=== PATIENT | female | born 1995 | race Caucasian/White ===

== ENCOUNTER 2021-06-18 07:27 | Inpatient (IN) | payer OTHER ==
[~2021-06-18] VITALS: Ht 162.6 cm; Wt 80.3 kg
[2021-06-18] MEDS ORDERED: SODIUM CHLORIDE 0.9% 1,000 ML IV ONE ×2 (07:45→10:45)
[2021-06-18] MEDS ORDERED: ACETAMINOPHEN 325MG TABLET PO ONE (08:15)
[2021-06-18 08:21] LABS: CHLORIDE 110 mEq/L (98-107)
[2021-06-18 08:22] LABS: BASOPHILS % 0.2 % (0.0-2.0); EOSINOPHILS % 0.1 % (0.0-5.0); HEMATOCRIT. 27.2 % (36.0-48.0); HEMOGLOBIN. 9.5 g/dL (12.0-16.0); LYMPHOCYTES % 19.3 % (20.0-50.0); MEAN CORPUSCULAR HEMOGLOBIN 29.7 pg (28.0-32.0); MEAN CORPUSCULAR VOLUME 84.9 fL (81.0-99.0); MEAN PLATELET VOLUME 8.3 fl (7.4-10.4); MONOCYTES % 9.1 % (2.0-8.0); NEUTROPHILS % 71.3 % (40.0-76.0); PLATELET 205 x1000/uL (130-400); RED CELL DISTRIBUTION WIDTH 13.2 % (11.6-14.6)
[2021-06-18 08:45] LABS: B-HCG QUANTITATIVE 49147 mIU/mL (<3)
[2021-06-18 09:02] LABS: T4 FREE >8.0 ng/dL ng/dL (0.76-1.46)
[2021-06-18] MEDS ORDERED: PROPRANOLOL HCL 1MG/ML AMPULE IV ONE (09:45)
[2021-06-18 10:01] LABS: CLARITY URINE CLOUDY (CLEAR); COLOR URINE RED (YELLOW); KETONES URINE NEGATIVE (NEGATIVE); LEUKOCYTE ESTERASE URINE 1+ (NEGATIVE); NITRITE URINE POSITIVE (NEGATIVE); OCCULT BLOOD URINE 3+ (NEGATIVE); PH URINE 5.5 (4.5-8.0); PROTEIN URINE 1+ (NEGATIVE); SPECIFIC GRAVITY URINE 1.011 (1.005-1.030)
[2021-06-18] MEDS ORDERED: PROPYLTHIOURACIL 50MG TABLET PO STA (11:52)
[2021-06-18] MEDS ORDERED: CLONIDINE 0.1MG TABLET PO PRN (12:15)
[2021-06-18] MEDS ORDERED: DIPHENHYDRAMINE 50MG/ML VIAL IV PRN (12:15)
[2021-06-18] MEDS ORDERED: ONDANSETRON HCL 4MG/2ML INJ IV PRN (12:15)
[2021-06-18] MEDS: SODIUM CHLORIDE 0.9% 1,000 ML IV SCH (12:15)
[2021-06-18] MEDS ORDERED: IPRATROPIUM/ALBUTEROL 0.5-3(2.5)MG/3ML NEB HHN PRN (12:15)
[2021-06-18] MEDS ORDERED: ACETAMINOPHEN 325MG TABLET PO PRN (12:15)
[2021-06-18] MEDS ORDERED: METOPROLOL TARTRATE 50MG TABLET PO SCH (13:00)
[2021-06-18] MEDS ORDERED: POTASSIUM CHLORIDE 20MEQ TABLET SR PO NR (13:00)
[2021-06-18] MEDS ORDERED: METOPROLOL TARTRATE 5MG/5ML VIAL IV PRN (13:00)
[2021-06-18] MEDS ORDERED: CEFTRIAXONE 1 G PREMIX 50 ML IV SCH (13:00)
[2021-06-18] MEDS: DIGOXIN 500MCG/2ML AMP IV SCH (18:22)
[2021-06-18] MEDS: ACETAMINOPHEN 325MG TABLET PO PRN (20:24)
[2021-06-18] MEDS: POTASSIUM CHLORIDE 20MEQ TABLET SR PO NR (22:00)
[2021-06-18 23:07] LABS: HEMATOCRIT 22.2 % (36.0-48.0); HEMOGLOBIN 7.5 g/dL (12.0-16.0); MEAN CORPUSCULAR HEMOGLOBIN 29.9 pg (28.0-32.0); MEAN CORPUSCULAR VOLUME 88.2 fL (81.0-99.0); PLATELET 202 x1000/uL (130-400); RED BLOOD CELL COUNT 2.52 mill/uL (4.2-5.4); RED CELL DISTRIBUTION WIDTH 13.4 % (11.6-14.6)
[2021-06-19] VITALS (16 sets, daily range): BP systolic 108–137; BP diastolic 42–80
[2021-06-19] MEDS: DIGOXIN 500MCG/2ML AMP IV SCH ×2 (00:39→06:13)
[2021-06-19] MEDS: METOPROLOL TARTRATE 25MG TABLET PO SCH ×3 (00:39→15:00)
[2021-06-19] MEDS: SODIUM CHLORIDE 0.9% 1,000 ML IV SCH (01:53)
[2021-06-19] MEDS: POTASSIUM CHLORIDE 20MEQ TABLET SR PO NR (01:53)
[2021-06-19 03:17] LABS: BASOPHILS % 0.2 % (0.0-2.0); EOSINOPHILS % 0.1 % (0.0-5.0); LYMPHOCYTES % 14.4 % (20.0-50.0); MEAN CORPUSCULAR VOLUME 88.3 fL (81.0-99.0); MEAN PLATELET VOLUME 7.9 fl (7.4-10.4); NEUTROPHILS % 74.3 % (40.0-76.0); PLATELET 248 x1000/uL (130-400); RED BLOOD CELL COUNT 2.27 mill/uL (4.2-5.4); RED CELL DISTRIBUTION WIDTH 13.4 % (11.6-14.6)
[2021-06-19 03:26] LABS: HEMATOCRIT. 20.1 % (36.0-48.0); HEMOGLOBIN. 6.8 g/dL (12.0-16.0)
[2021-06-19 03:41] LABS: CHLORIDE 109 mEq/L (98-107)
[2021-06-19 03:48] LABS: LDL CHOLESTEROL 24 mg/dL (5-100)
[2021-06-19 03:50] LABS: HDL CHOLESTEROL 27 mg/dL (40-59)
[2021-06-19] MEDS ORDERED: DEXT 5%/LR + PITOCIN 20UNITS/L 1,000 ML IV ONE (06:00)
[2021-06-19] MEDS ORDERED: MISOPROSTOL 200MCG TABLET PO NR (06:00)
[2021-06-19] MEDS: ACETAMINOPHEN 325MG TABLET PO PRN ×2 (08:49→18:24)
[2021-06-19] MEDS ORDERED: METHIMAZOLE 5MG TABLET PO SCH (09:00)
[2021-06-19] MEDS ORDERED: CEFTRIAXONE 1,000 MG in DEXTROSE 5% WATER 50 ML IV SCH (09:00)
[2021-06-19] MEDS: MULTIVITAMINS,THER W-MINERALS TABLET PO SCH (09:24)
[2021-06-19] MEDS: METRONIDAZOLE 500MG TABLET PO SCH ×2 (09:24→22:45)
[2021-06-19 10:09] LABS: HEMATOCRIT. 25.2 % (36.0-48.0); HEMOGLOBIN. 8.4 g/dL (12.0-16.0); LYMPHOCYTES % 10.9 % (20.0-50.0); MEAN CORPUSCULAR HEMOGLOBIN 28.9 pg (28.0-32.0); MEAN CORPUSCULAR VOLUME 86.9 fL (81.0-99.0); MEAN PLATELET VOLUME 8.6 fl (7.4-10.4); NEUTROPHILS % 84.1 % (40.0-76.0); PLATELET 223 x1000/uL (130-400); RED CELL DISTRIBUTION WIDTH 14.2 % (11.6-14.6)
[2021-06-19] MEDS ORDERED: AMPICILLIN 2,000 MG in SODIUM CHLORIDE 0.9% 100 ML IV SCH (12:00)
[2021-06-19] MEDS: DILTIAZEM HCL 30MG TABLET PO SCH ×2 (12:07→17:46)
[2021-06-19] MEDS: METHYLERGONOVINE MALEATE 0.2MG TABLET PO SCH ×2 (13:49→17:41)
[2021-06-19] MEDS: FERROUS SULFATE 325MG TABLET PO SCH ×2 (13:49→17:41)
[2021-06-19] MEDS: GENTAMICIN 80MG PREMIX 100 ML IV SCH ×2 (13:49→20:17)
[2021-06-19] MEDS: METHIMAZOLE 10MG TABLET PO SCH ×2 (15:00→17:43)
[2021-06-19 16:39] LABS: HEMATOCRIT 21.9 % (36.0-48.0); HEMOGLOBIN 7.4 g/dL (12.0-16.0); MEAN CORPUSCULAR HEMOGLOBIN 29.2 pg (28.0-32.0); MEAN CORPUSCULAR VOLUME 86.1 fL (81.0-99.0); PLATELET 207 x1000/uL (130-400); RED BLOOD CELL COUNT 2.54 mill/uL (4.2-5.4); RED CELL DISTRIBUTION WIDTH 13.6 % (11.6-14.6)
[2021-06-19 17:02] LABS: PHOSPHORUS 3.5 mg/dL (2.5-4.9)
[2021-06-19] MEDS: AMPICILLIN 2,000 MG in SODIUM CHLORIDE 0.9% 100 ML IV SCH (17:41)
[2021-06-19] MEDS: METOPROLOL TARTRATE 50MG TABLET PO SCH (22:46)
[2021-06-20] VITALS (7 sets, daily range): BP systolic 84–148; BP diastolic 47–67
[2021-06-20] MEDS: AMPICILLIN 2,000 MG in SODIUM CHLORIDE 0.9% 100 ML IV SCH ×6 (00:12→23:51)
[2021-06-20] MEDS: METHYLERGONOVINE MALEATE 0.2MG TABLET PO SCH ×5 (00:12→23:51)
[2021-06-20] MEDS: ACETAMINOPHEN 325MG TABLET PO PRN (00:14)
[2021-06-20] MEDS: DILTIAZEM HCL 30MG TABLET PO SCH ×2 (00:14→05:19)
[2021-06-20] MEDS: SODIUM CHLORIDE 0.9% 1,000 ML IV SCH ×2 (01:54→13:32)
[2021-06-20] MEDS: GENTAMICIN 80MG PREMIX 100 ML IV SCH ×2 (03:43→13:30)
[2021-06-20] MEDS: METOPROLOL TARTRATE 50MG TABLET PO SCH ×3 (05:19→21:49)
[2021-06-20] MEDS: IBUPROFEN 600MG TABLET PO PRN ×2 (05:29→21:49)
[2021-06-20 08:14] LABS: BASOPHILS % 0.2 % (0.0-2.0); EOSINOPHILS % 0.3 % (0.0-5.0); HEMATOCRIT. 22.3 % (36.0-48.0); HEMOGLOBIN. 7.3 g/dL (12.0-16.0); LYMPHOCYTES % 20.9 % (20.0-50.0); MEAN CORPUSCULAR HEMOGLOBIN 29.2 pg (28.0-32.0); MEAN CORPUSCULAR VOLUME 88.9 fL (81.0-99.0); MEAN PLATELET VOLUME 8.5 fl (7.4-10.4); MONOCYTES % 12.8 % (2.0-8.0); NEUTROPHILS % 65.8 % (40.0-76.0); PLATELET 207 x1000/uL (130-400); RED BLOOD CELL COUNT 2.51 mill/uL (4.2-5.4); RED CELL DISTRIBUTION WIDTH 14.5 % (11.6-14.6)
[2021-06-20 08:38] LABS: CHLORIDE 113 mEq/L (98-107)
[2021-06-20] MEDS: MULTIVITAMINS,THER W-MINERALS TABLET PO SCH (08:42)
[2021-06-20] MEDS: METHIMAZOLE 10MG TABLET PO SCH ×3 (08:42→17:12)
[2021-06-20] MEDS: METRONIDAZOLE 500MG TABLET PO SCH ×2 (08:42→21:47)
[2021-06-20] MEDS: FERROUS SULFATE 325MG TABLET PO SCH ×3 (08:42→17:12)
[2021-06-20] MEDS ORDERED: POTASSIUM CHLORIDE 20MEQ TABLET SR PO SCH ×2 (09:15→14:00)
[2021-06-20] MEDS ORDERED: MAGNESIUM 2 G PREMIX 50 ML IV SCH (11:00)
[2021-06-20] MEDS ORDERED: AMLODIPINE 2.5MG TABLET PO SCH (12:00)
[2021-06-20] MEDS ORDERED: GENTAMICIN 100MG PREMIX 50 ML IV SCH (18:00)
[2021-06-21] VITALS: BP 103/58
== END 2021-06-21 01:17 | disposition left against medical advice (07) | DRG 564 ==
LOC: ER 07:27 → MICUSO 11:51 → EDBEDREQTM 11:54 → EDBEDREQSVC 11:54 → EDBEDREQ 11:54 → ENRESERV 12:45 → CANRESERV 12:45 → 3WST 19:20 → MICUSO 19:34 → 7EST 22:25
PROVIDERS: ADMIT Internal Medicine; ATTEND Internal Medicine
PROC: 30233N1 Transfusion of Nonautologous Red Blood Cells into Peripheral Vein, Percutaneous Approach (ICD-10-PCS; principal; 2021-06-19)
DX: O03.4 Incomplete spontaneous abortion without complication (principal); I27.21 Secondary pulmonary arterial hypertension; O45.92 Premature separation of placenta, unspecified, second trimester; E05.01 Thyrotoxicosis with diffuse goiter with thyrotoxic crisis or storm; I48.19 Other persistent atrial fibrillation; O26.52 Maternal hypotension syndrome, second trimester; O23.42 Unspecified infection of urinary tract in pregnancy, second trimester; O98.812 Other maternal infectious and parasitic diseases complicating pregnancy, second trimester; O99.412 Diseases of the circulatory system complicating pregnancy, second trimester; I48.4 Atypical atrial flutter; D50.0 Iron deficiency anemia secondary to blood loss (chronic); O99.282 Endocrine, nutritional and metabolic diseases complicating pregnancy, second trimester; Z20.822 Contact with and (suspected) exposure to COVID-19; O99.012 Anemia complicating pregnancy, second trimester; Z91.19 Patient's noncompliance with other medical treatment and regimen; Z79.899 Other long term (current) drug therapy
CPT/HCPCS: 36415; 76805; 80048; 80053; 80061; 80170; 81003; 82533; 83520; 83735; 84100; 84439; 84443; 84481; 84702; 85025; 85027; 86078; 86850; 86900; 86920; 87426; 88305; 93005; 93306; 93970; 99285; J0290; J0696; J1160; J1200; J1580; J1800; J2405; J2590; J3475; J7030; J7040; J7050; J7060; P9016

== ENCOUNTER 2021-06-21 05:47 | Emergency (ER) | payer OTHER ==
[~2021-06-21] VITALS: Ht 162.6 cm; Wt 82.0 kg
[2021-06-21 08:05] VITALS: BP 239/280
== END 2021-06-21 08:35 | disposition home or self-care (01) ==
LOC: ER 05:47
DX: Z00.00 Encounter for general adult medical examination without abnormal findings (principal); E03.9 Hypothyroidism, unspecified; Z98.890 Other specified postprocedural states
CPT/HCPCS: 93005; 99283